=== PATIENT | male | born 1960 | race Hispanic/Latino ===

== ENCOUNTER 2017-01-03 09:52 | Emergency (ER) | payer MEDICAID, OTHER ==
[2017-01-03] MEDS ORDERED: Sodium Chloride 0.9% 1,000 ML IV STA ×2 (10:22→10:57)
--- NOTE | 2017-01-03 10:24 | ED PDOC ---
Arrival/HPI - General Chief Complaint: Weakness/Neurological Deficit Time Seen by Provider: 01/03/17 10:11 Historian: Patient - History of Present Illness Narrative History of Present Illness (Text): 01/03/17 10:19 A 56 year old male, whose past medical history includes diabetes and hypertension, presents to the emergency department complaining of generalized weakness. Patient reports he has not been taking any medication for some time now. Patient notes mild urinary frequency, dysuria and suprapubic discomfort but denies any fever, chills, nausea, vomiting, diarrhea, chest pain, shortness of breath or any other complaints. Symptom Course: Unchanged Quality: Other Context: Home Past Medical History - Provider Review Nursing Documentation Reviewed: Yes - Cardiac Hx Hypertension: Yes - Pulmonary Hx Respiratory Disorders: No - Neurological Hx Neurological Disorder: No - HEENT Hx HEENT Disorder: No - Renal Hx Renal Disorder: No - Endocrine/Metabolic Hx Diabetes Mellitus Type 2: Yes - Hematological/Oncological Hx Blood Disorders: No - Integumentary Hx Dermatological Disorder: No - Musculoskeletal/Rheumatological Hx Arthritis: Yes - Gastrointestinal Hx Gastrointestinal Disorders: No - Genitourinary/Gynecological Hx Genitourinary Disorders: No - Psychiatric Hx Psychophysiologic Disorder: No Hx Substance Use: No - Surgical History Hx Orthopedic Surgery: Yes (L KNEE) - Anesthesia Hx Anesthesia: Yes Family/Social History - Physician Review Nursing Documentation Reviewed: Yes Family/Social History: No Known Family HX Smoking Status: Never Smoked Hx Alcohol Use: No Hx Substance Use: No Allergies/Home Meds Allergies/Adverse Reactions: Allergies No Known Allergies Allergy (Verified 01/03/17 10:01) Review of Systems - Physician Review All systems were reviewed & negative as marked: Yes - Review of Systems Constitutional: absent: Fevers, Night Sweats Respiratory: absent: SOB Cardiovascular: absent: Chest Pain Gastrointestinal: Abdominal Pain (Suprapubic discomfort). absent: Diarrhea, Nausea, Vomiting Genitourinary Male: Dysuria, Frequency Physical Exam Vital Signs Reviewed: Yes Vital Signs Temp Pulse Resp BP Pulse Ox 01/03/17 14:30 78 20 160/90 H 99 01/03/17 12:30 88 20 162/96 H 98 01/03/17 10:01 98.7 F 97 H 16 139/96 H 98 Temperature: Afebrile Blood Pressure: Hypertensive Pulse: Tachycardic Respiratory Rate: Normal Appearance: Positive for: Well-Appearing, Non-Toxic, Comfortable Pain Distress: None Mental Status: Positive for: Alert and Oriented X 3 - Systems Exam Head: Present: Atraumatic, Normocephalic Pupils: Present: PERRL Extroacular Muscles: Present: EOMI Conjunctiva: Present: Normal Mouth: Present: Moist Mucous Membranes Neck: Present: Normal Range of Motion Respiratory/Chest: Present: Clear to Auscultation, Good Air Exchange. No: Respiratory Distress, Accessory Muscle Use Cardiovascular: Present: Regular Rate and Rhythm, Normal S1, S2. No: Murmurs Abdomen: Present: Normal Bowel Sounds. No: Tenderness, Distention, Peritoneal Signs Genitourinary Male: Present: Normal External Genitalia. No: Lesions, Penile Discharge, Testicle Tenderness, Penile Swelling, Masses, Erythema, Hernias, Testicle Swelling, Prostate Tenderness, Prostate Enlargement Back: Present: Normal Inspection Upper Extremity: Present: Normal Inspection. No: Cyanosis, Edema Lower Extremity: Present: Normal Inspection. No: Edema Neurological: Present: GCS=15, CN II-XII Intact, Speech Normal Skin: Present: Warm, Dry, Normal Color. No: Rashes Psychiatric: Present: Alert, Oriented x 3, Normal Insight, Normal Concentration Medical Decision Making ED Course and Treatment: 01/03/17 10:19 Impression: A 56 year old male with generalized weakness. Patient notes urinary frequency, dysuria and suprapubic discomfort. Differential Diagnosis included but are not limited to: Weakness, Hyperglycemia , rule out DKA vs. UTI Plan: -- Chest xray -- EKG -- Labs -- Blood and Urine culture -- Urinalysis -- IV fluids -- Reassess and disposition Progress Notes: EKG shows NSR at [address]-segment elevations, normal intervals. Interpreted by me. Report Date : 01/03/2017 10:53:19 Procedure: Chest xray Dictator : Will Johns MD IMPRESSION: No active disease. 01/03/17 15:24 Patient's lactic acid improved. Patient no longer has symptoms. Glucose improved. He was given instructions on diet control for his diabetes. He was instructed on use of metformin twice daily. Monika PINEDA called Meds to beds program at our pharmacy to help him get this medications. We told him he needs to follow up at our clinic in 1-2days. Advised to return to the ED if symptoms worsen or any other concern. - Lab Interpretations Lab Results: 01/03/17 10:25 01/03/17 11:42 Lab Results 01/03/17 14:47: pO2 42, VBG pH 7.37, VBG pCO2 52.0, VBG HCO3 30.1 H, VBG Total CO2 31.7 H, VBG O2 Sat (Calc) 84.5 H, VBG Base Excess 3.6 H, VBG Potassium 4.0, Sodium 138.0, Chloride 106.0, Glucose 319 H, Lactate 1.6, FiO2 21.0, Venous Blood Potassium 4.0 01/03/17 13:02: POC Glucose (mg/dL) 341 H 01/03/17 11:50: Urine Color Yellow, Urine Appearance Clear, Urine pH 6.0, Ur Specific [place] 1.010, Urine Protein Negative, Urine Glucose (UA) >=1000, Urine Ketones Negative, Urine Blood Trace-intact H, Urine Nitrate Negative, Urine Bilirubin Negative, Urine Urobilinogen 0.2, Ur Leukocyte Esterase Trace H , Urine RBC 10 - 15, Urine WBC 2 - 5, Ur Epithelial Cells 0 - 2, Amorphous Sediment Few, Urine Bacteria Many, Urine Other [place]ast 01/03/17 11:42: Sodium 134, Chloride 103, Potassium 4.3, Carbon Dioxide 26, Anion Gap 9 L, BUN 14, Creatinine 0.8, Est GFR ( Amer) > 60, Est GFR (Non -Af Amer) > 60, Random Glucose 366 H*, Calcium 8.9, Phosphorus 3.4, Magnesium 1.7, Total Bilirubin 0.7, AST 19, ALT 21, Alkaline Phosphatase 58, Total Protein 6.5, Albumin 3.4, Globulin 3.2, Albumin/Globulin Ratio 1.1 01/03/17 10:25: pO2 64 H, VBG pH 7.39, VBG pCO2 46.0, VBG HCO3 27.8, VBG Total CO2 29.2 H, VBG O2 Sat (Calc) 94.3 H, VBG Base Excess 2.1 H, VBG Potassium 4.6, Sodium 135.0, Chloride 99.0, Glucose 508 H*, Lactate 2.9 H, FiO2 21.0, Venous Blood Potassium 4.6 01/03/17 10:25: WBC 6.1, RBC 5.30, Hgb 14.7, Hct 41.9 L, MCV 79.1 L, MCH 27.7, MCHC 35.1, RDW 12.7, Plt Count 201, MPV 10.8, Gran % 68.3 H, Lymph % (Auto) 23.6 , [place] % (Auto) 5.6, Eos % (Auto) 2.0, Baso % (Auto) 0.5, Gran # 4.18, Lymph # 1.4, [place] # 0.3, Eos # 0.1, Baso # 0.03 01/03/17 10:10: POC Glucose (mg/dL) 432 H* I have reviewed the lab results: Yes Interpretation: Abnormal lab values - RAD Interpretation Radiology Orders: 01/03/17 10:21 CHEST PORTABLE [RAD] Stat Inflated Ball Molder: ED Physician (CXR negative) - Medication Orders Current Medication Orders: Discontinued Medications Sodium Chloride (Sodium Chloride 0.9%) 1,000 mls @ 999 mls/hr IV .Q1H1M STA Stop: 01/03/17 11:22 Last Admin: 01/03/17 10:22 Dose: 999 mls/hr Sodium Chloride (Sodium Chloride 0.9%) 1,000 mls @ 999 mls/hr IV .Q1H1M STA Stop: 01/03/17 11:57 Last Admin: 01/03/17 11:21 Dose: 999 mls/hr Insulin Human Regular (Humulin R) 6 units IVP STAT STA Stop: 01/03/17 13:04 Last Admin: 01/03/17 13:34 Dose: 6 units - Scribe Statement The provider has reviewed the documentation as recorded by the Ngoc Farris Provider Scribe Attestation: All medical record entries made by the Mashaibarlet were at my direction and personally dictated by me. I have reviewed the chart and agree that the record accurately reflects my personal performance of the history, physical exam, medical decision making, and the department course for this patient. I have also personally directed, reviewed, and agree with the discharge instructions and disposition. Disposition/Present on Arrival - Present on Arrival Any Indicators Present on Arrival: Yes History of DVT/PE: No History of Uncontrolled Diabetes: Yes Urinary Catheter: No History of Decub. Ulcer: No History Surgical Site Infection Following: None - Disposition Have Diagnosis and Disposition been Completed?: Yes Diagnosis: Hyperglycemia, Weakness Disposition: HOME/ ROUTINE Disposition Time: 15:34 Patient Plan: Discharge Patient Problems: Current Active Problems Problem Status Onset Hyperglycemia Acute Weakness Acute Condition: IMPROVED Discharge Instructions (ExitCare): Weakness (ED), Hypertension (ED), Diabetic Hyperglycemia (ED) Additional Instructions: Mr Cho, thank you for letting us take care of you today. Your provider was Dr. Mcrae. You were treated for Hyperglycemia, Weakness, Hypertension. The emergency medical care you received today was directed at your acute symptoms. If you were prescribed any medication, please fill it and take as directed. It may take several days for your symptoms to resolve. Return to the Emergency Department if your symptoms worsen, do not improve, or if you have any other problems. Please contact your doctor or call one of the physicians/clinics you have been referred to that are listed on the Patient Visit Information form that is included in your discharge packet. Bring any paperwork you were given at discharge with you along with any medications you are taking to your follow up visit. Our treatment cannot replace ongoing medical care by a primary care provider (PCP) outside of the emergency department. Thank you for allowing the [facility] team to be part of your care today. If you had an X-Ray or CT scan: A Radiologist will review the ED reading if any change in treatment is needed we will contact you. If you had a blood, urine, or wound culture: It will take several days for the results, if any change in treatment is needed we will contact you. If you had an STI test: It will take 48 hours for the results. Please call after 1 week if you have not heard back. Prescriptions: metFORMIN [glucOPHAGE] 500 mg PO BID #60 tab Referrals: [facility] at [facility] [Outside] - Follow up with primary Forms: LAFASO ([employer])
[2017-01-03 10:50] LABS: ADD MANUAL DIFF? NO
[2017-01-03 10:53] LABS: BASO # 0.03 K/mm3 (0.0-2.0); BASO % 0.5 % (0.0-3.0); EOS # 0.1 (0.0-0.7); GRAN # 4.18 (1.4-6.5); GRAN % 68.3 % (50.0-68.0); HEMATOCRIT 41.9 % (42.0-52.0); LYMPH # 1.4 (1.2-3.4); LYMPH % 23.6 % (22.0-35.0); MEAN CELL VOLUME 79.1 fL (80.0-105.0); MEAN CORPUSCULAR HEMOGLOBIN 27.7 pg (25.0-35.0); MEAN CORPUSCULAR HGB CONC 35.1 g/dl (31.0-37.0); MEAN PLATELET VOLUME 10.8 fl (7.0-11.0); MONO # 0.3 (0.1-0.6); MONO % 5.6 % (1.0-6.0); PLATELET COUNT 201 10^3/uL (120.0-450.0); RED CELL DISTRIBUTION WIDTH 12.7 % (11.5-14.5); WHITE BLOOD COUNT 6.1 10^3/ul (4.5-11.0)
--- NOTE | 2017-01-03 10:54 | RAD ---
HISTORY: Sepsis Patient COMPARISON: No prior. FINDINGS: LUNGS: No active pulmonary disease. PLEURA: No significant pleural effusion identified, no pneumothorax apparent. CARDIOVASCULAR: Normal. OSSEOUS STRUCTURES: No significant abnormalities. VISUALIZED UPPER ABDOMEN: Normal. OTHER FINDINGS: None. IMPRESSION: No active disease.
[2017-01-03 10:55] LABS: VENOUS BLOOD GAS BASE EXCESS 2.1 mmol/L (0.0-2.0); VENOUS BLOOD PH 7.39 (7.32-7.43)
[2017-01-03 12:00] LABS: URINE BILIRUBIN NEGATIVE (NEGATIVE); URINE BLOOD TRACE-INTACT (NEGATIVE); URINE GLUCOSE (UA) >=1000 mg/dL (NEGATIVE); URINE KETONE NEGATIVE (NEGATIVE); URINE LEUKOCYTE ESTERASE TRACE Leu/uL (NEGATIVE); URINE PROTEIN NEGATIVE mg/dL (<30 mg/dL); URINE UROBILINOGEN 0.2 E.U./dL (<1 E.U./dL)
[2017-01-03 12:01] LABS: URINE APPEARANCE CLEAR (CLEAR); URINE COLOR YELLOW (YELLOW)
[2017-01-03 12:09] LABS: ALB/GLOB RATIO 1.1 (1.1-1.8); ALKALINE PHOSPHATASE 58 U/L (38-133); ALT/SGPT 21 U/L (7-56); AST/SGOT 19 U/L (15-59); BILIRUBIN,TOTAL 0.7 mg/dL (0.2-1.3); BLOOD UREA NITROGEN 14 mg/dL (7-21); CALCIUM 8.9 mg/dL (8.4-10.5); CARBON DIOXIDE 26 mmol/L (21-33); CHLORIDE 103 mmol/L (98-107); GFR AFRICAN-AMERICAN > 60; MAGNESIUM 1.7 mg/dL (1.7-2.2); PHOSPHOROUS 3.4 mg/dL (2.5-4.5); POTASSIUM 4.3 mmol/L (3.6-5.0); SODIUM 134 mmol/L (132-148); TOTAL PROTEIN 6.5 g/dL (5.8-8.3)
[2017-01-03 12:22] LABS: GLUCOSE,RANDOM 366 mg/dL (70-110)
[2017-01-03 12:32] LABS: URINE AMORPHOUS SEDIMENT FEW; URINE BACTERIA MANY (NEG); URINE EPITHELIAL CELLS 0 - 2 /hpf (0-5)
[2017-01-03] MEDS ORDERED: Insulin Regular 1 UNITS/0.01 ML ML IVP STA (13:03)
[2017-01-03 14:51] VITALS: O2SAT 99
[2017-01-03 15:11] LABS: VENOUS BLOOD GAS BASE EXCESS 3.6 mmol/L (0.0-2.0); VENOUS BLOOD PH 7.37 (7.32-7.43)
[2017-01-03 16:28] VITALS: BP 161/100; PULSE 80; RESP 18; TEMP 98
--- NOTE | 2017-01-03 22:45 | CARD ---
APPROVED REPORT EKG Measurement Heart [id number] <Conclusion> Normal sinus rhythm Nonspecific T wave abnormality Abnormal ECG
== END 2017-01-03 15:30 | disposition home or self-care (01) ==
LOC: ED 09:52
DX: E11.65 Type 2 diabetes mellitus with hyperglycemia (principal); R53.1 Weakness; I10 Essential (primary) hypertension
CPT/HCPCS: 71010; 80053; 81001; 82803; 82948; 83735; 84100; 85025; 87040; 87086; 87181; 93005; 96361; 96374; 99285; J7040

== ENCOUNTER 2017-01-07 07:38 | Emergency (ER) | payer MEDICAID, OTHER ==
[2017-01-07 08:20] VITALS: TEMP 98.8
[2017-01-07] MEDS ORDERED: Sodium Chloride 0.9% 1,000 ML IV STA ×2 (08:42→09:17)
[2017-01-07] MEDS ORDERED: cefTRIAXone 1 gm 1 GM/100 ML BAG IVPB STA (08:42)
[2017-01-07 08:59] LABS: ADD MANUAL DIFF? NO
--- NOTE | 2017-01-07 09:01 | ED PDOC ---
Arrival/HPI - General Chief Complaint: Male Genitourinary Time Seen by Provider: 01/07/17 08:39 Historian: Patient - History of Present Illness Narrative History of Present Illness (Text): 01/07/17 08:58 56 year old male whose past medical history includes hypertension and hypertension presents to the emergency department with generalized weakness after being called back to the ER for a urine infection. Patient states he did not fill his prescription. Denies nausea or vomiting. No new complaints. PMD: None Time/Duration: < week Symptom Onset: Gradual Symptom Course: Unchanged Modifying Factors (Text): None Associated Symptoms (Text): None Past Medical History - Provider Review Nursing Documentation Reviewed: Yes - Infectious Disease Hx of Infectious Diseases: None - Cardiac Hx Hypertension: Yes - Pulmonary Hx Respiratory Disorders: No - Neurological Hx Neurological Disorder: No - HEENT Hx HEENT Disorder: No - Renal Hx Renal Disorder: No - Endocrine/Metabolic Hx Diabetes Mellitus Type 2: Yes - Hematological/Oncological Hx Blood Disorders: No - Integumentary Hx Dermatological Disorder: No - Musculoskeletal/Rheumatological Hx Arthritis: Yes - Gastrointestinal Hx Gastrointestinal Disorders: No - Genitourinary/Gynecological Hx Genitourinary Disorders: No - Psychiatric Hx Psychophysiologic Disorder: No Hx Substance Use: No - Surgical History Hx Orthopedic Surgery: Yes (L KNEE) - Anesthesia Hx Anesthesia: Yes Family/Social History - Physician Review Nursing Documentation Reviewed: Yes Family/Social History: Unknown Family HX Smoking Status: Never Smoked Hx Alcohol Use: No Hx Substance Use: No Allergies/Home Meds Allergies/Adverse Reactions: Allergies No Known Allergies Allergy (Verified 01/03/17 10:01) Review of Systems - Physician Review All systems were reviewed & negative as marked: Yes - Review of Systems Constitutional: Fatigue Respiratory: absent: SOB Cardiovascular: absent: Chest Pain Gastrointestinal: absent: Nausea, Vomiting Physical Exam Vital Signs Reviewed: Yes Vital Signs Temp Pulse Resp BP Pulse Ox 01/07/17 09:56 56 L 18 138/87 97 01/07/17 08:16 98.8 F 88 20 136/88 98 Temperature: Afebrile Blood Pressure: Normal Pulse: Regular Respiratory Rate: Normal Appearance: Positive for: Well-Appearing, Non-Toxic, Comfortable Pain Distress: None Mental Status: Positive for: Alert and Oriented X 3 - Systems Exam Head: Present: Atraumatic, Normocephalic Pupils: Present: PERRL Extroacular Muscles: Present: EOMI Conjunctiva: Present: Normal Mouth: Present: Moist Mucous Membranes Neck: Present: Normal Range of Motion Respiratory/Chest: Present: Clear to Auscultation, Good Air Exchange. No: Respiratory Distress, Accessory Muscle Use Cardiovascular: Present: Regular Rate and Rhythm, Normal S1, S2. No: Murmurs Abdomen: Present: Normal Bowel Sounds. No: Tenderness, Distention, Peritoneal Signs Back: Present: Normal Inspection Upper Extremity: Present: Normal Inspection. No: Cyanosis, Edema Lower Extremity: Present: Normal Inspection. No: Edema Neurological: Present: GCS=15, CN II-XII Intact, Speech Normal Skin: Present: Warm, Dry, Normal Color. No: Rashes Psychiatric: Present: Alert, Oriented x 3, Normal Insight, Normal Concentration Medical Decision Making ED Course and Treatment: Impression: 56 year old male whose past medical history includes hypertension and hypertension presents to the emergency department with generalized weakness after being called back to the ER for a urine infection. Differential Diagnosis include but are not limited to: uti, hyperglyecmia, r/o dka, atypical cardiac. Plan: -- EKG, Chest X-ray -- Rocephin -- Labs -- Reassess and disposition Prior Visits: Notes and results from previous visits were reviewed. Patient last seen in ED on 01/03/17 for generalized weakness, mild urinary frequency, and discharged home. Progress Notes: Chest X-ray Cutlet Maker Pork: Dr. Emmy Goldberg MD IMPRESSION: No active pulmonary disease 01/07/17 09:50 On reevaluation, patient states he feels better. No evidence of DKA. No SIRS criteria suggesting sepsis. Patient states he feels well to go home. urine treated. advise outpt f/u and return precautions 01/07/17 12:23 - Lab Interpretations Lab Results: 01/07/17 08:51 01/07/17 08:51 Lab Results 01/07/17 09:14: Urine Color Light yellow, Urine Appearance Sl cloudy, Urine pH 6.0, Ur Specific [place] 1.015, Urine Protein Trace H, Urine Glucose (UA) >=1000 , Urine Ketones Negative, Urine Blood Trace-lysed H, Urine Nitrate Positive H, Urine Bilirubin Negative, Urine Urobilinogen 0.2, Ur Leukocyte Esterase Trace H , Urine RBC 0 - 2, Urine WBC 5 - 10, Ur Epithelial Cells 0 - 2, Urine Bacteria Many 01/07/17 08:51: pO2 55, VBG pH 7.36, VBG pCO2 54.0, VBG HCO3 30.5 H, VBG Total CO2 32.2 H, VBG O2 Sat (Calc) 90.7 H, VBG Base Excess 3.6 H, VBG Potassium 4.5, Sodium 135.0, Chloride 103.0, Glucose 364 H, Lactate 1.7, FiO2 21.0, Venous Blood Potassium 4.5 01/07/17 08:51: Sodium 134, Chloride 101, Potassium 4.5, Carbon Dioxide 27, Anion Gap 11, BUN 14, Creatinine 0.9, Est GFR ( Amer) > 60, Est GFR (Non- Af Amer) > 60, Random Glucose 339 H*, Calcium 9.2, Magnesium 1.5 L, Total Bilirubin 0.9, AST 23, ALT 26, Alkaline Phosphatase 58, Lactate Dehydrogenase 436, Total Creatine Kinase 51, Troponin I < 0.01, Total Protein 7.0, Albumin 3.7 , Globulin 3.3, Albumin/Globulin Ratio 1.1 01/07/17 08:51: PT 11.2, INR 1.04, APTT 26.1 01/07/17 08:51: WBC 5.5, RBC 4.89, Hgb 13.5 L, Hct 38.5 L, MCV 78.7 L, MCH 27.6 , MCHC 35.1, RDW 12.8, Plt Count 176, MPV 10.3, Gran % 64.8, Lymph % (Auto) 25.3 , [place] % (Auto) 5.9, Eos % (Auto) 3.1, Baso % (Auto) 0.9, Gran # 3.54, Lymph # 1.4, [place] # 0.3, Eos # 0.2, Baso # 0.05 - RAD Interpretation Radiology Orders: 01/07/17 08:41 CHEST PORTABLE [RAD] Stat - EKG Interpretation EKG Interpretation (Text): EKG: Ordered, reviewed, and independently interpreted the EKG. Rate : 72 BPM Rhythm : NSR Interpretation : Nonspecific ST/T wave changes Comparison : No interval changes from 01/03/17 Interpreted by ED Physician: Yes Type: 12 lead EKG - Medication Orders Current Medication Orders: Discontinued Medications Sodium Chloride (Sodium Chloride 0.9%) 1,000 mls @ 999 mls/hr IV .Q1H1M STA Stop: 01/07/17 09:42 Last Admin: 01/07/17 08:55 Dose: 999 mls/hr Ceftriaxone Sodium (Rocephin 1 Gram Ivpb) 1 gm in 100 mls @ 200 mls/hr IVPB STAT STA PRN Reason: Protocol Stop: 01/07/17 09:11 Last Admin: 01/07/17 09:24 Dose: 200 mls/hr Sodium Chloride (Sodium Chloride 0.9%) 1,000 mls @ 999 mls/hr IV .Q1H1M STA Stop: 01/07/17 10:17 Last Admin: 01/07/17 09:24 Dose: 999 mls/hr - Scribe Statement The provider has reviewed the documentation as recorded by the Ngoc Rucker Provider Scribe Attestation: All medical record entries made by the Mashaibe were at my direction and personally dictated by me. I have reviewed the chart and agree that the record accurately reflects my personal performance of the history, physical exam, medical decision making, and the department course for this patient. I have also personally directed, reviewed, and agree with the discharge instructions and disposition. Disposition/Present on Arrival - Present on Arrival Any Indicators Present on Arrival: No History of DVT/PE: No History of Uncontrolled Diabetes: Yes Urinary Catheter: No History of Decub. Ulcer: No History Surgical Site Infection Following: None - Disposition Have Diagnosis and Disposition been Completed?: Yes Diagnosis: Hyperglycemia, UTI (urinary tract infection) Disposition: HOME/ ROUTINE Disposition Time: 11:00 Condition: STABLE Discharge Instructions (ExitCare): Urinary Tract Infection in Men (ED), Diabetic Hyperglycemia (ED) Additional Instructions: please follow up with your doctor. return to er with worsening symptoms or concerns. Prescriptions: Nitrofurantoin Macrocrystals [Macrobid] 100 mg PO BID #14 cap Referrals: Jl Johnson, [Primary Care Provider] - Follow up with primary
[2017-01-07 09:03] LABS: BASO # 0.05 K/mm3 (0.0-2.0); BASO % 0.9 % (0.0-3.0); EOS # 0.2 (0.0-0.7); EOS % 3.1 % (1.5-5.0); GRAN # 3.54 (1.4-6.5); GRAN % 64.8 % (50.0-68.0); HEMATOCRIT 38.5 % (42.0-52.0); LYMPH # 1.4 (1.2-3.4); LYMPH % 25.3 % (22.0-35.0); MEAN CELL VOLUME 78.7 fL (80.0-105.0); MEAN CORPUSCULAR HEMOGLOBIN 27.6 pg (25.0-35.0); MEAN CORPUSCULAR HGB CONC 35.1 g/dl (31.0-37.0); MEAN PLATELET VOLUME 10.3 fl (7.0-11.0); MONO # 0.3 (0.1-0.6); MONO % 5.9 % (1.0-6.0); PLATELET COUNT 176 10^3/uL (120.0-450.0); RED CELL DISTRIBUTION WIDTH 12.8 % (11.5-14.5); WHITE BLOOD COUNT 5.5 10^3/ul (4.5-11.0)
[2017-01-07 09:04] LABS: VENOUS BLOOD GAS BASE EXCESS 3.6 mmol/L (0.0-2.0); VENOUS BLOOD PH 7.36 (7.32-7.43)
[2017-01-07 09:13] LABS: INR 1.04 (0.93-1.08); PARTIAL THROMBOPLASTIN TIME 26.1 Seconds (23.7-30.8)
[2017-01-07 09:16] LABS: ALB/GLOB RATIO 1.1 (1.1-1.8); ALKALINE PHOSPHATASE 58 U/L (38-133); ALT/SGPT 26 U/L (7-56); AST/SGOT 23 U/L (15-59); BILIRUBIN,TOTAL 0.9 mg/dL (0.2-1.3); BLOOD UREA NITROGEN 14 mg/dL (7-21); CALCIUM 9.2 mg/dL (8.4-10.5); CARBON DIOXIDE 27 mmol/L (21-33); CHLORIDE 101 mmol/L (98-107); GFR AFRICAN-AMERICAN > 60; MAGNESIUM 1.5 mg/dL (1.7-2.2); POTASSIUM 4.5 mmol/L (3.6-5.0); SODIUM 134 mmol/L (132-148)
[2017-01-07 09:27] LABS: GLUCOSE,RANDOM 339 mg/dL (70-110); TROPONIN I < 0.01 ng/mL
[2017-01-07 09:31] LABS: URINE BILIRUBIN NEGATIVE (NEGATIVE); URINE BLOOD TRACE-LYSED (NEGATIVE); URINE GLUCOSE (UA) >=1000 mg/dL (NEGATIVE); URINE KETONE NEGATIVE (NEGATIVE); URINE LEUKOCYTE ESTERASE TRACE Leu/uL (NEGATIVE); URINE PROTEIN TRACE mg/dL (<30 mg/dL); URINE UROBILINOGEN 0.2 E.U./dL (<1 E.U./dL)
[2017-01-07 09:32] LABS: URINE APPEARANCE SL CLOUDY (CLEAR); URINE COLOR LIGHT YELLOW (YELLOW)
[2017-01-07 09:44] LABS: URINE BACTERIA MANY (NEG); URINE EPITHELIAL CELLS 0 - 2 /hpf (0-5); URINE RBC 0 - 2 /hpf (0-2)
--- NOTE | 2017-01-07 09:56 | RAD ---
HISTORY: weakness COMPARISON: 01/03/2017 FINDINGS: LUNGS: The lungs are well inflated and clear. PLEURA: No significant pleural effusion identified, no pneumothorax apparent. CARDIOVASCULAR: Normal. OSSEOUS STRUCTURES: No significant abnormalities. VISUALIZED UPPER ABDOMEN: Normal. OTHER FINDINGS: None. IMPRESSION: No active pulmonary disease.
[2017-01-07 09:58] VITALS: BP 138/87; PULSE 56; RESP 18; O2SAT 97
--- NOTE | 2017-01-08 18:01 | CARD ---
APPROVED REPORT EKG Measurement Heart [id number] [place] [id number] <Conclusion> Normal sinus rhythm Nonspecific T wave abnormality Abnormal ECG
== END 2017-01-07 10:27 | disposition home or self-care (01) ==
LOC: ED 07:38
DX: E11.65 Type 2 diabetes mellitus with hyperglycemia (principal); N39.0 Urinary tract infection, site not specified; I10 Essential (primary) hypertension
CPT/HCPCS: 71010; 80053; 81001; 82550; 82803; 83615; 83735; 84484; 85025; 85610; 85730; 87086; 93005; 96360; 99283; J0696; J7040

== ENCOUNTER 2017-05-19 14:26 | Emergency (ER) | payer MEDICAID ==
[2017-05-19] MEDS ORDERED: Sodium Chloride 0.9% 1,000 ML IV STA (14:50)
--- NOTE | 2017-05-19 15:12 | ED PDOC ---
Arrival/HPI - General Chief Complaint: Flu-like Symptoms Time Seen by Provider: 05/19/17 14:30 Historian: Patient - History of Present Illness Narrative History of Present Illness (Text): 05/19/17 14:45 A 56 year old male, whose past medical history includes diabetes, hypertension, and hyperlipidemia, presents to the emergency department complaining of bodyaches, chills, and left eye errythema for 3 days. Patient denies of any fever, nausea, vomiting, urinary output changes, or any other complaints. No PMD Time/Duration: > week (3 days) Symptom Onset: Sudden Symptom Course: Unchanged Activities at Onset: Rest, Light Past Medical History - Provider Review Nursing Documentation Reviewed: Yes - Infectious Disease Hx of Infectious Diseases: None - Cardiac Hx Hypertension: Yes - Pulmonary Hx Respiratory Disorders: No - Neurological Hx Neurological Disorder: No - HEENT Hx HEENT Disorder: No - Renal Hx Renal Disorder: No - Endocrine/Metabolic Hx Diabetes Mellitus Type 2: Yes - Hematological/Oncological Hx Blood Disorders: No - Integumentary Hx Dermatological Disorder: No - Musculoskeletal/Rheumatological Hx Arthritis: Yes - Gastrointestinal Hx Gastrointestinal Disorders: No - Genitourinary/Gynecological Hx Genitourinary Disorders: No - Psychiatric Hx Psychophysiologic Disorder: No Hx Substance Use: No - Surgical History Hx Orthopedic Surgery: Yes (L KNEE) - Anesthesia Hx Anesthesia: No Hx Anesthesia Reactions: No Hx Malignant Hyperthermia: No Family/Social History - Physician Review Nursing Documentation Reviewed: Yes Family/Social History: No Known Family HX Smoking Status: Never Smoked Hx Alcohol Use: No Hx Substance Use: No Allergies/Home Meds Allergies/Adverse Reactions: Allergies No Known Allergies Allergy (Verified 01/03/17 10:01) Review of Systems - Physician Review All systems were reviewed & negative as marked: Yes - Review of Systems Constitutional: Other (chills). absent: Fevers Eyes: Other (left eye errythema) Gastrointestinal: absent: Nausea, Vomiting Genitourinary Male: absent: Urinary Output Changes Musculoskeletal: Myalgias Physical Exam Vital Signs Reviewed: Yes Vital Signs Temp Pulse Resp BP Pulse Ox 05/19/17 15:24 98.4 F 05/19/17 14:55 98.4 F 05/19/17 14:30 98 F 86 18 164/101 H 97 Temperature: Afebrile Blood Pressure: Hypertensive Pulse: Regular Respiratory Rate: Normal Appearance: Positive for: Well-Appearing Pain Distress: None Mental Status: Positive for: Alert and Oriented X 3 Finger Stick Blood Glucose: 312 - Systems Exam Head: Present: Atraumatic, Normocephalic Pupils: Present: PERRL Extroacular Muscles: Present: EOMI Conjunctiva: Present: Injected (mild left eye injection) Mouth: Present: Moist Mucous Membranes Neck: Present: Normal Range of Motion Respiratory/Chest: Present: Clear to Auscultation, Good Air Exchange. No: Respiratory Distress, Accessory Muscle Use Cardiovascular: Present: Regular Rate and Rhythm, Normal S1, S2. No: Murmurs Abdomen: Present: Normal Bowel Sounds. No: Tenderness, Distention, Peritoneal Signs Back: Present: Normal Inspection Upper Extremity: Present: Normal Inspection. No: Cyanosis, Edema Lower Extremity: Present: Normal Inspection. No: Edema Neurological: Present: GCS=15, CN II-XII Intact, Speech Normal Skin: Present: Warm, Dry, Normal Color. No: Rashes Psychiatric: Present: Alert, Oriented x 3, Normal Insight, Normal Concentration Medical Decision Making ED Course and Treatment: 05/19/17 14:50 Impression: 56 year old male with bodyaches, chills, and left eye errythema. Physical exam shows mild left eye injection. Plan: -- EKG -- Chest X-ray -- Labs -- Urinalysis -- Tylenol -- IV Fluids -- Blood Gas -- Reassess and disposition Prior Visits: Notes and results from previous visits were reviewed. Patient was last seen in the emergency department on 01/07/2017 for generalized weakness. Patient was d/ c home. Progress Notes: EKG: Ordered, reviewed, and independently interpreted the EKG. Rate : 85 BPM Rhythm : NSR Interpretation : No ST-segment elevations or depressions, no T-wave inversions, normal intervals. Comparison : No previous EKG for comparison. 05/19/2017 15:29 Chest X-ray IMPRESSION: No interval acute cardiopulmonary disease appreciated. Dictator: Deven Roa MD 05/19/17 17:29 left eye pressure 38, discussed with nabeel coronado. requests d/c with cosopt, outpt f/u in am 9am. pt instructed - Lab Interpretations Lab Results: 05/19/17 15:15 05/19/17 15:15 Lab Results 05/19/17 15:15: pO2 50, VBG pH 7.41, VBG pCO2 44.0, VBG HCO3 27.9, VBG Total CO2 29.3 H, VBG O2 Sat (Calc) 90.7 H, VBG Base Excess 2.7 H, VBG Potassium 5.2, Sodium 135.0, Chloride 102.0, Glucose 336 H, Lactate 1.4, FiO2 21.0, Venous Blood Potassium 5.2 05/19/17 15:15: Sodium 137, Chloride 103, Potassium 4.3, Carbon Dioxide 27, Anion Gap 11, BUN 14, Creatinine 0.8, Est GFR ( Amer) > 60, Est GFR (Non- Af Amer) > 60, Random Glucose 312 H*, Calcium 9.2, Magnesium 1.8, Total Bilirubin 0.9, AST 24, ALT 32, Alkaline Phosphatase 66, Lactate Dehydrogenase 545, Total Creatine Kinase 155, Troponin I < 0.01, Total Protein 6.9, Albumin 3.8, Globulin 3.1, Albumin/Globulin Ratio 1.2 05/19/17 15:15: Urine Color Yellow, Urine Appearance Sl cloudy, Urine pH 6.0, Ur Specific [place] 1.015, Urine Protein 30 H, Urine Glucose (UA) >=1000, Urine Ketones Negative, Urine Blood Trace-intact H, Urine Nitrate Positive H, Urine Bilirubin Negative, Urine Urobilinogen 1.0 H, Ur Leukocyte Esterase Small H, Urine RBC 2 - 5, Urine WBC Tntc, Ur Epithelial Cells 6 - 8, Urine Bacteria Many 05/19/17 15:15: PT 12.3, INR 1.13 H, APTT 30.4 05/19/17 15:15: WBC 6.7 D, RBC 5.11, Hgb 14.1, Hct 39.8 L, MCV 77.9 L, MCH 27.6 , MCHC 35.4, RDW 12.5, Plt Count 201, MPV 10.6, Gran % 66.2, Lymph % (Auto) 23.8 , [place] % (Auto) 7.3 H, Eos % (Auto) 2.1, Baso % (Auto) 0.6, Gran # 4.41, Lymph # 1.6, [place] # 0.5, Eos # 0.1, Baso # 0.04 I have reviewed the lab results: Yes - RAD Interpretation Radiology Orders: 05/19/17 14:50 CHEST PORTABLE [RAD] Stat - Medication Orders Current Medication Orders: Discontinued Medications Acetaminophen (Tylenol 325mg Tab) 975 mg PO STAT STA Stop: 05/19/17 14:51 Last Admin: 05/19/17 15:24 Dose: 975 mg MAR Pain/Vitals Document 05/19/17 15:24 GMI (Rec: 05/19/17 15:27 GMI [id number]) Pain Reassessment Is This A Pain ReAssessment? No Sleep Is patient sleeping during reassessment? No Presence of Pain Presence of Pain No Vitals Temperature (97.6 F-99.6 F) 98.4 F Temperature Source Oral Dorzolamide/Timolol (Cosopt 2%-0.5% Opht) 1 drop OS STAT STA Stop: 05/19/17 16:46 Sodium Chloride (Sodium Chloride 0.9%) 1,000 mls @ 999 mls/hr IV .Q1H1M STA Stop: 05/19/17 15:50 Last Admin: 05/19/17 15:21 Dose: 999 mls/hr eMAR Start Stop Document 05/19/17 15:21 GMI (Rec: 05/19/17 15:22 GMI [id number]) Intravenous Solution Start Date 05/19/17 Start Time 15:21 Ceftriaxone Sodium (Rocephin 1 Gram Ivpb) 1 gm in 100 mls @ 200 mls/hr IVPB STAT STA PRN Reason: Protocol Stop: 05/19/17 16:15 Last Admin: 05/19/17 16:32 Dose: 200 mls/hr eMAR Start Stop Document 05/19/17 16:32 MS (Rec: 05/19/17 16:33 MS [id number]) Intravenous Solution Start Date 05/19/17 Start Time 16:33 Tetracaine HCl (Tetracaine 0.5% Ophth Soln) 1 drop OS STAT STA Stop: 05/19/17 15:57 Last Admin: 05/19/17 16:18 Dose: 1 drop - Scribe Statement The provider has reviewed the documentation as recorded by the [place] Provider Scribe Attestation: All medical record entries made by the Scribe were at my direction and personally dictated by me. I have reviewed the chart and agree that the record accurately reflects my personal performance of the history, physical exam, medical decision making, and the department course for this patient. I have also personally directed, reviewed, and agree with the discharge instructions and disposition. Disposition/Present on Arrival - Present on Arrival History of DVT/PE: No History of Uncontrolled Diabetes: Yes Urinary Catheter: No History of Decub. Ulcer: No History Surgical Site Infection Following: None - Disposition Diagnosis: UTI (urinary tract infection), Elevated IOP Disposition: HOME/ ROUTINE Patient Problems: Current Active Problems Problem Status Onset UTI (urinary tract infection) Acute Elevated IOP Acute Condition: STABLE Discharge Instructions (ExitCare): Urinary Tract Infection in Men (ED), Glaucoma (ED) Print Language: ANGUILLAN Additional Instructions: please follow up with eye doctor 9 am tommorow. return to er with worsening symptosm or concerns. it is critical you follow up. Prescriptions: Cefpodoxime [Vantin] 100 mg PO BID #14 tab Dorzolamide 2%/Timolol 0.5% [Cosopt Ocumeter Plus 2%-0.5% 10 Ml] 1 drop LEFTEYE BID #1 bottle metFORMIN [glucOPHAGE] 500 mg PO BID #14 tab Polymyxin/Trimethoprim Sulfate [Polytrim Ophth Soln] 1 drop LEFTEYE Q4 #1 bottle Referrals: [facility] [Outside] - Follow up with primary [facility] [place] [Outside] - Follow up with primary [facility] [Outside] - Follow up with primary Terrence Coronado MD [Staff Provider] - Follow up with primary Forms: [facility] (L[place]uanian)
[2017-05-19 15:26] LABS: BASO # 0.04 K/mm3 (0.0-2.0); BASO % 0.6 % (0.0-3.0); EOS # 0.1 (0.0-0.7); EOS % 2.1 % (1.5-5.0); GRAN # 4.41 (1.4-6.5); GRAN % 66.2 % (50.0-68.0); HEMATOCRIT 39.8 % (42.0-52.0); LYMPH # 1.6 (1.2-3.4); LYMPH % 23.8 % (22.0-35.0); MEAN CELL VOLUME 77.9 fl (80.0-105.0); MEAN CORPUSCULAR HEMOGLOBIN 27.6 pg (25.0-35.0); MEAN CORPUSCULAR HGB CONC 35.4 g/dl (31.0-37.0); MEAN PLATELET VOLUME 10.6 fl (7.0-11.0); MONO # 0.5 (0.1-0.6); MONO % 7.3 % (1.0-6.0); RED CELL DISTRIBUTION WIDTH 12.5 % (11.5-14.5); VENOUS BLOOD GAS BASE EXCESS 2.7 mmol/L (0.0-2.0); VENOUS BLOOD PH 7.41 (7.32-7.43); WHITE BLOOD COUNT 6.7 10^3/ul (4.5-11.0)
[2017-05-19 15:29] LABS: URINE BILIRUBIN NEGATIVE (NEGATIVE); URINE BLOOD TRACE-INTACT (NEGATIVE); URINE GLUCOSE (UA) >=1000 mg/dL (NEGATIVE); URINE KETONE NEGATIVE (NEGATIVE); URINE LEUKOCYTE ESTERASE SMALL Leu/uL (NEGATIVE); URINE PROTEIN 30 mg/dL (<30 mg/dL)
--- NOTE | 2017-05-19 15:31 | RAD ---
HISTORY: weakness COMPARISON: Portable chest 01/07/2017. FINDINGS: LUNGS: No active pulmonary disease. PLEURA: No significant pleural effusion identified, no pneumothorax apparent. CARDIOVASCULAR: Normal. OSSEOUS STRUCTURES: No significant abnormalities. VISUALIZED UPPER ABDOMEN: Normal. OTHER FINDINGS: None. IMPRESSION: No interval acute cardiopulmonary disease appreciated.
[2017-05-19 15:36] LABS: ALB/GLOB RATIO 1.2 (1.1-1.8); ALKALINE PHOSPHATASE 66 U/L (38-126); ALT/SGPT 32 U/L (7-56); AST/SGOT 24 U/L (17-59); BILIRUBIN,TOTAL 0.9 mg/dL (0.2-1.3); BLOOD UREA NITROGEN 14 mg/dL (7-21); CALCIUM 9.2 mg/dL (8.4-10.5); CARBON DIOXIDE 27 mmol/L (21-33); CHLORIDE 103 mmol/L (98-107); GFR AFRICAN-AMERICAN > 60; MAGNESIUM 1.8 mg/dL (1.7-2.2); POTASSIUM 4.3 mmol/L (3.6-5.0); SODIUM 137 mmol/L (132-148); TOTAL PROTEIN 6.9 g/dL (5.8-8.3)
[2017-05-19 15:39] LABS: GLUCOSE,RANDOM 312 mg/dL (70-110); INR 1.13 (0.93-1.08); PARTIAL THROMBOPLASTIN TIME 30.4 Seconds (25.1-36.5)
[2017-05-19 15:45] LABS: URINE APPEARANCE SL CLOUDY (CLEAR); URINE COLOR YELLOW (YELLOW)
[2017-05-19] MEDS ORDERED: cefTRIAXone 1 gm 1 GM/100 ML BAG IVPB STA (15:46)
[2017-05-19 15:50] LABS: TROPONIN I < 0.01 ng/mL
[2017-05-19] MEDS ORDERED: Tetracaine 0.5% Ophth 2 ML BOTTLE OS STA (15:56)
[2017-05-19] MEDS ORDERED: Tetracaine 0.5% Ophth 2 ML BOTTLE ONE (15:58)
[2017-05-19 16:08] LABS: URINE WBC TNTC /hpf (0-6)
[2017-05-19 16:09] LABS: URINE BACTERIA MANY (NEG)
[2017-05-19] MEDS ORDERED: Dorzolamide 2%/Timolol 0.5% 100 DROP/10 ML BOTTLE OS STA (16:45)
[2017-05-19 17:39] VITALS: BP 135/75; PULSE 75; RESP 20; TEMP 98.1; O2SAT 99
--- NOTE | 2017-05-21 09:34 | CARD ---
APPROVED REPORT EKG Measurement Heart [id number] <Conclusion> Normal sinus rhythm Nonspecific T wave abnormality Leftward axis No change
== END 2017-05-19 17:41 | disposition home or self-care (01) ==
LOC: ED 14:26
DX: N39.0 Urinary tract infection, site not specified (principal); H40.059 Ocular hypertension, unspecified eye
CPT/HCPCS: 71010; 80053; 81001; 82550; 82803; 82948; 83615; 83735; 84484; 85025; 85610; 85730; 87086; 96361; 96365; 99285; J0696; J7040